=== PATIENT | female | born 1990 | race Caucasian/White ===

== ENCOUNTER 2025-10-19 23:02 | Inpatient (IN) | payer BC, SELFPAY ==
[2025-10-19] VITALS (7 sets, daily range): BP systolic 121–170; BP diastolic 95–113; BMI 38.3
[2025-10-19 20:05] LABS: Hematocrit 41.2 % (37.0-47.0); Hemoglobin 14.0 g/dL (12.0-16.0); Mean Corp Hgb Conc. 34.0 g/dL (33.0-37.0); Mean Corpuscular Volume 90.4 fL (81.0-99.0); Nucleated Red Blood Cells % 0 %; Platelet Count 214 10^3/uL (130-400); Red Cell Dist. Width 12.5 % (11.5-14.5)
[2025-10-19 20:12] LABS: INR 1.11; PT 14.4 Sec (11.4-14.6)
[2025-10-19 20:21] LABS: COVID-19 Antigen Negative (Negative)
[2025-10-19 20:25] LABS: ALT (SGPT) 61 U/L (0-35); AST (SGOT) 69 U/L (14-36); Albumin 4.5 g/dl (3.5-5.0); Alkaline Phosphatase 89 U/L (38-126); Blood Urea Nitrogen 11 mg/dl (7-17); Calcium 9.4 mg/dl (8.4-10.2); Carbon Dioxide 21 mmol/L (22-30); Chloride 104 mmol/L (98-107); Estimated Creatinine Clearance > 125 ml/min; Glucose 122 mg/dl (70-99); Potassium 4.0 mmol/L (3.5-5.1); Sodium 134 mmol/L (135-145); Total Protein 8.3 g/dl (6.3-8.2); eGFR > 60.00
[2025-10-19 20:39] LABS: Troponin I 0.115 ng/ml
--- NOTE | 2025-10-19 21:09 | ED.GENMED ---
History of Present Illness
General
Chief Complaint: Dizziness
Time Seen by Provider: 10/19/25 20:17
History of Present Illness
History of Present Illness:
35-year-old female without significant past medical history presenting to the emergency department for elevated heart rate and shortness of breath. Patient reports symptoms started 4 days ago. She initially went to urgent care, was told that it
was likely anxiety and given Xanax. She went on a work trip yesterday to [place]. Her parents called primary care doctor to schedule an appointment for tomorrow, upon her return from [place]. When she was getting on the plane today, her primary
care doctor had called her and said that she was concern for pulmonary embolism and advised her to come to the ER. The flight had already taken off, and upon landing, patient was seen by the medics at the airport and patient was escorted by her
parents to the ER. She denies any lower extremity swelling or pain. Denies any prior history of PE. She is on an estrogen containing control, intravaginal. Denies known cardiac history. Family denies any known clotting disorders. Patient
reports dyspnea at rest and exertion, with additional chest pressure. She denies additional acute medical complaint
Phy Exam
Physical Exam
Physical Exam:
General: Well-appearing, no clinical signs of dehydration, nontoxic and in no acute distress
HEENT: protecting airway
Neck: appears supple
CV: Tachycardic, regular rhythm, no evidence of cyanosis
Resp: Mild tachypnea with lungs clear to auscultation
Abd: No distention
Extremities: No deformities, no swelling
Neuro: alert, no focal neurologic deficit
: deferred
Rectal: deferred
Psych: Normal affect
Skin: Intact
Course
Orders/Labs/Results
Orders:
Orders
10/19/25 19:40
EKG [Electrocardiogram (*1)] Urgent
Reason for Study: Chest Pain
10/19/25 19:41
Electrocardiogram (*1) Urgent
Reason for Study: Chest Pain
EKG- Treatment ONCE
10/19/25 19:56
COVID-19 Antigen Urgent
Source: Nasal Swab
Complete Blood Count/With Diff Urgent
Comprehensive Metabolic Panel Urgent
Prothrombin Time Urgent
Troponin I Urgent
Influenza A+B Rapid Molecular Urgent
CRISTOBAL Source: Nasal Swab
Specimen Description:
10/19/25 20:53
CT Chest PE Study Urgent
Comment:
Reason For Exam: tachy, chest pressure. Concern for PE
10/19/25 21:59
PTT Urgent
Comment: Obtain baseline before beginning heparin infusion if not already collected
Heparin 8,600 units IV NOW STA
Pharmacy Request to Place See Dose Instructions PO NOW STA
Discontinue all Active Warfarin orders?: Yes
Nursing to Place Non Medication Order As Directed
Physician Order: PTT 6 hours after initial start of Heparin infusion
10/19/25 22:00
Heparin [id number] Units/250 ml 25,000 units in 250 ml IV PER PROTOCOL
Weight to be used for heparin protocol in kilograms (kg):: 107.6
Protocol:: DVT/PE
PTT Goal Range to be used:: PTT 73 to 111 seconds
Order type:: Initial
INITIAL Infusion Dose (UNITS/KG/hr) & then follow protocol:: 18 units/kg/hr
Infusion Dose in UNITS/hr & then follow protocol (UNITS/hr):: 1,900
INFUSION RATE in mL/hr & then follow protocol (mL/hr):: 19
For DVT/PE algorithm, re-bolus for low PTT?: Yes
PTT less than or equal to 64 seconds:: Re-bolus 80 units/kg (max 10,000units). Increase by 400 units/hr
(+ 4mL/hr)
PTT 64.1 to 72.9 seconds:: Re-bolus 40 units/kg (max 5,000 units). Increase by 200 units/hr
(+ 2mL/hr)
PTT 73 to 111 seconds:: Target Range. No change in rate.
PTT 111.1 to 130.9 seconds:: Decrease rate by 200 units/hr (- 2 mL/hr)
PTT 131 to 199.9 seconds:: HOLD for 1 hr. Then decrease by 300 units/hr (- 3mL/hr)
PTT greater than or equal to 200 seconds:: HOLD for 2 hrs & Notify Provider. Then decrease by 400 units/hr
(- 4mL/hr)
Lab follow-up:: Each change, PTT q6h until 2 consecutive are therapeutic. Then
PTT daily.
Pharmacy Request to Place See Dose Instructions IV DIRECTED
Abnormal Lab Results
10/19/25
19:56
WBC 13.4 H 10^3/uL
(4.8-10.8)
Abs Immat Gran (auto) 0.1 H 10^3/uL
(0-0.05)
Absolute Neuts (auto) 9.1 H 10^3/uL
(1.4-6.5)
Absolute Monos (auto) 1.0 H 10^3/uL
(0.1-0.6)
Sodium 134 L mmol/L
(135-145)
Carbon Dioxide 21 L mmol/L
(22-30)
Glucose 122 H mg/dl
(70-99)
AST 69 H U/L
(14-36)
ALT 61 H U/L
(0-35)
Troponin I 0.115 H* ng/ml
Total Protein 8.3 H g/dl
(6.3-8.2)
10/19/25 19:56
10/19/25 19:56
Vital Signs
Initial and Last Documented VS:
Initial Vital Signs
Temp Pulse Resp Pulse Ox
100 F 150 24 100
10/19/25 19:35 10/19/25 19:35 10/19/25 19:35 10/19/25 19:35
Last Documented Vital Signs
Temp Pulse Resp BP Pulse Ox
100 F 126 25 142/113 93
10/19/25 19:35 10/19/25 21:30 10/19/25 21:30 10/19/25 21:23 10/19/25 21:30
MDM/Problems Addressed
MDM/Problems Addressed:
35-year-old female presenting for tachycardia, chest pressure, shortness of breath. Vital signs on arrival significant for tachycardia.
On exam, patient is dyspneic at rest, markedly tachycardic to the 130s. Findings of S1Q3T3 on EKG. No significant acute ischemic findings or STEMI criteria. Patient without significant coronary risk factors. Without present concern for ACS.
However, high level of suspicion for PE given patient's estrogen containing control with presenting symptoms and vital signs. For this reason, will urgently send patient to CT scan
21:30 -informed by radiology for concern of extensive bilateral PE involving the main pulmonary arteries with suggestion of right heart strain. PERT alert called
21:35 -case discussed with pulmonology. Will also reach out to interventional radiology
*Pulse Oximetry
SaO2: 96
Oxygen Mode of Delivery: Room air
Patient hypoxic: no
*EKG
Interpreted by ED Provider?: Yes
EKG Intrepretation Date: 10/19/25
EKG Intrepretation Time: 21:13
Interpretation: abnormal
Comparison EKG: no comparison EKG present
Heart Rate: 138
Rate: tachycardiac
Rhythm: sinus
[place]: normal axis
Interval: normal interval
QRS Pattern: normal QRS
Ischemia: non-specific ST changes
*Critical Care Note
Total Time (30-74mins, 75-104mins- exclusive of procedures): 62
comment:
The high probability of a clinically significant, sudden or life threatening deterioration of the cardiopulmonary system(s) required my full and direct attention, intervention and personal management. The aggregate critical care time was 62 minutes.
This time is in addition to time spent performing reported procedures but includes the following:
[x] Data Review and interpretation
[x] Patient assessment and monitoring of vital signs
[x] Documentation
[x] Medication orders and management
ED Attending Note
-
Portions of this chart may have been created with voice recognition software.� Occasional wrong word or��sound alike� substitutions may have occurred due to the inherent limitations of voice recognition software.
Discharge Plan
Departure
Patient Disposition: Admit
Date of Disposition: 10/19/25
Time of Disposition: 22:05
Presentation/result/management discussed w/ accepting MD/DO: Hospitalist
Patient with high blood pressure during this ER visit?: No
Condition: Critical
Discharge Problem:
Pulmonary embolism, bilateral
Prescriptions:
No Action
sumatriptan succinate [Imitrex] 25 mg Tablet
0 mg PO .COMPLEX
Rx Instructions:
take 1 tab at onset of headache; if no relief may repeat 1 tab after at least 2 hrs; max = 4 tabs/24 hr
alprazolam [Xanax] 0.5 mg Tablet
0.5 mg PO DAILYPRN PRN (Reason: anxiety)
Referrals:
Nya White PA-C [Family Provider, Family Practice]
Interventions
Interventions:
*Risk Screen - Suicide Last Done: 10/19/25 19:35
*General Assessment Last Done: 10/19/25 19:35
*Neglect/Abuse Screening Last Done: 10/19/25 19:35
*ED COVID-19 Vaccine History Last Done: 10/19/25 20:06
*ED Influenza Vaccine History Last Done: 10/19/25 20:06
[facility] Fall Risk Assessment Tool Last Done: 10/19/25 20:15
ED- Neurological Assessment Last Done: 10/19/25 20:15
Discharge Date and Time
Print Language: FINNISH
[2025-10-19] MEDS: HEPARIN 25000 UNITS/250 ML IV (22:25)
--- NOTE | 2025-10-19 22:27 | HPS.HSE ---
Family Physician
-
Family Physician: Nya White PA-C
Chief Complaint
-
Dizziness
History of Present Illness
This is a 35-year-old with past medical history significant for history of migraine headaches and allergies who presents to the emergency department with dizziness and chest pressure.
Patient reports onset of symptoms about 2 to 3 days ago. She reports palpitations and lightheadedness. She reports exertional dyspnea. She also reports exertional lightheadedness. The lightheadedness got worse and now she reports lightheadedness
with just standing. She denies any pleuritic chest pain. She reported that she was was seen by urgent care 2 days ago and was told that she had an anxiety episode. She took a flight on which was 2 hours and developed worsening symptoms
after the flight. She has not seen any leg swelling. She reported that she was exposed to family members who had COVID but exposure was after resolution of their symptoms. She herself denies any URI symptoms except for visual allergy symptoms.
She reports some shortness of breath.
Patient denies any smoking. She does have a vaginal ring for control. She also reports recent travels to [facility] and back about 2 weeks ago. The flight lenght is 4.5 hours total divided into 2 2-hour legs to/fro. She reports past medical
history of dengue fever 2 years ago. She denies any prior history of venous thrombosis. She denies any recent surgeries, hospitalizations or prolonged immobility. She denies any family history of venous thromboembolism.
In the emergency department she was afebrile, blood pressure was 140/100, she was tachycardic to 126 and oxygen saturation was 94% on room air. Tmax was 100 �F. ECG shows sinus tachycardia to 138. Troponin was elevated at 0.15. CT angio of the
chest shows extensive bilateral pulmonary embolism involving the main pulmonary arteries, diuresis suggestion of right heart strain, patchy consolidation within the posterior left upper lobe and subpleural left lower lobe which may reflect pneumonia
and/or pulmonary infarct. COVID test was negative.
Medical History
Past Medical History
Past Medical History: Reports Other (Migraine headaches, allergies)
Past Surgical History: Reports Cholecystectomy and Other ([place] tooth removal)
Social History
Tobacco: Non-smoker
Alcohol: Occasional
Drug: None
Living: Alone
Family History
Family History: Not pertinent
Allergies / Home Medications
Allergies reflects when Allergies were last updated in [facility].
Home Medications with original date entered in [facility]
Allergy/Medication List:
Allergies
Allergy/AdvReac Type Severity Reaction Status Date / Time
Sulfa (Sulfonamide Allergy Unknown Verified 10/19/25 19:35
Antibiotics)
Home Medications
alprazolam 0.5 mg tablet (Xanax) 0.5 mg PO DAILYPRN PRN anxiety 10/19/25
sumatriptan succinate 25 mg tablet (Imitrex) 0 mg PO .COMPLEX 10/19/25
Review of Systems
-
Constitutional: Reports No Symptoms
EENT: Reports No Symptoms
Respiratory: Reports Trouble Breathing
Cardiac: Reports Chest Pain
Abdomen/GI: Reports No Symptoms
: Reports No Symptoms
Musculoskeletal: Reports No Symptoms
Skin: Reports No Symptoms
Neurological: Reports Dizzy
Endocrine: Reports No Symptoms
Hematologic/Lymphatic: Reports No Symptoms
Psych: Reports No Symptoms
Physical Exam
Vital Signs
Vital Signs
Temp Pulse Resp BP Pulse Ox
100 F 126 25 142/113 93
10/19/25 19:35 10/19/25 21:30 10/19/25 21:30 10/19/25 21:23 10/19/25 21:30
Physical Exam
General: Well Developed, Well Nourished and No Apparent Distress
HEENT: NormoCephalic, Moist mucous membranes and Atraumatic
Respiratory: Clear
Cardiac: S1/S2, Regular Rhythm and Tachycardia; No Murmur, Rub or Peripheral Edema
GI: Soft, Non Tender, Non Distended and Normal Bowel Sounds; No Organomegaly
Rectal: Deferred by Provider
Genito-urinary: Deferred by me
Musculoskeletal: No Clubbing, No Cyanosis and No Edema
Skin: No Rash
Neuro: AO x 3 and Nonfocal/grossly intact
Hematologic/Lymphatic: No Lymphadenopathy
Psych: Calm
Laboratory Results
-
10/19/25 19:56
10/19/25 19:56
Laboratory Results
PT 14.4 Sec (11.4-14.6) 10/19/25 19:56
INR 1.11 10/19/25 19:56
Total Bilirubin 0.6 mg/dl (0.2-1.3) 10/19/25 19:56
AST 69 U/L (14-36) H 10/19/25 19:56
ALT 61 U/L (0-35) H 10/19/25 19:56
Alkaline Phosphatase 89 U/L (38-126) 10/19/25 19:56
Troponin I 0.115 ng/ml H* 10/19/25 19:56
Data Reviewed
-
CT Scan: Report Reviewed by me
Medical Tests (Nuc Med, Echo, EKG etc): Image Personally Visualized and interpreted
Lab Data: Labs Reviewed by me
Old Records: Reviewed
Impression/Plan
-
IMPRESSION:
35-year-old with a no significant past medical history except for migraine headaches and also on control presents to the emergency department with chest pressure and lightheadedness and was found to have acute bilateral pulmonary embolism. No
clear provoking factors but has estrogen control and a recent flight to and from [facility].
PLAN:
Pulmonary embolism -bilateral PE, right heart strain, elevated troponin 0.10, persistent tachycardic consistent with submassive PE. Patient remains hemodynamically stable at this time. Oxygen saturation is 94% on room air.
� Admit to ICU pending thrombolysis/thrombectomy
� Patient discussed with pulmonary and interventional radiology, patient will be going for thrombolysis/thrombectomy
� Started on heparin drip
-N.p.o. for now
-Supportive fluids, pain control and antiemetics
-Supplemental oxygen as needed
-Patchy opacities more likely infarct rather than pneumonia, will check procalcitonin with a.m. labs will start antibiotics if febrile
- trend troponin in am, echo in am
-No clear provoking factors except for estrogen control and a fairly short recent flight to [facility].
- recommend age appropriate cancer screening (mammogram, cervical exams), outpatient hypercoagulability workup recommended
-IR consulted, pulmonary consulted
DVT prophylaxis�on heparin drip
CODE STATUS�full code
[2025-10-19] MEDS: HEPARIN 8600 UNITS IV (22:28)
[2025-10-19 22:52] LABS: APTT 27.5 Sec (23.4-35.0)
[2025-10-19 23:17] LABS: HCG, Serum Qualitative Screen Negative
[2025-10-20] VITALS (46 sets, daily range): BP systolic 118–152; BP diastolic 61–107; BMI 36.3
--- NOTE | 2025-10-20 01:36 | W.PN.UPDATE ---
Update Note
Progress Note Update
Pulmonary arteriogram showed extensive bilateral central PE. Initial PA pressure 65/29 (mean 45).
Bilateral embolectomy performed, yielding large amount of embolus from each side. Repeat arteriogram much improved.
Repeat PA pressure 47/21 (mean 33).
Bedrest for 2 hours. Please hold heparin for 2 hours, then OK to resume therapeutic heparin around 3:30 am.
[2025-10-20 01:53] LABS: Glucose - Point of Care 101 mg/dl (70-99)
[2025-10-20] MEDS: NSS 1000 IV (02:19)
[2025-10-20] MEDS: HEPARIN 25000 UNITS/250 ML IV ×2 (03:40→13:46)
[2025-10-20 04:07] LABS: Hematocrit 34.0 % (37.0-47.0); Hemoglobin 11.7 g/dL (12.0-16.0); Mean Corp Hgb Conc. 34.4 g/dL (33.0-37.0); Mean Corpuscular Volume 87.6 fL (81.0-99.0); Platelet Count 156 10^3/uL (130-400); Red Cell Dist. Width 12.8 % (11.5-14.5)
[2025-10-20 04:09] LABS: APTT 47.5 Sec (23.4-35.0)
[2025-10-20 04:31] LABS: Procalcitonin < 0.05 ng/ml (0.0-0.25)
[2025-10-20 04:35] LABS: Troponin I 0.272 ng/ml
--- NOTE | 2025-10-20 05:36 | PTCARENOTE ---
Received patient from [facility], pt is AOX3, VSS, NSR/ST on monitor, 2L NC. Right groin site is CDI, palpable pulse to right lower leg. Heparin on hold until 0. Pt to lay flat for 2 hours. IVF infusing at 60ml/hr.
After 2hours of laying flat, trialed sitting at 15 degrees, pt coughed, groin site started to bleed. held pressure, no hematoma.
Heparin restarted 339.
--- NOTE | 2025-10-20 07:15 | PTCARENOTE ---
Received patient A&Ox4, NSR in 80s, BP WNL, on 2L NC, no SOB complained or observed, Regular diet, Urine continent, Right Groin puncture site covered with gauze and Tegaderm, soft to touch.
--- NOTE | 2025-10-20 07:39 | CON.INTV ---
Consultation
Consultation Request
Date/Time Consultation Requested: 10/19/25
Date/Time Consultation Performed: 10/20/25
Performing Provider: Norma
Reason for Consultation: PE
Medical History
-
History of Present Illness:
35-year-old female with previous history of migraines, allergies, obesity presenting to ER with dizziness and chest pressure. She notes that the symptoms started 2 to 3 days prior to admission, with associated palpitations, lightheadedness,
dyspnea on exertion. Of note, she did have a frequent flight on which was 2 hours and developed worsening symptoms after the flight. She is also on control. She had not noticed any leg swelling or pain. On arrival to ER, blood
pressure was 140/100, tachycardic at 126 with oxygen saturation at 94% on room air. She had Tmax of 100.0 F. Troponin elevated at 0.15. CT angio demonstrating extensive bilateral pulmonary embolism involving the main pulmonary artery with
evidence of right heart strain. She had urgent evaluation via PERT, underwent bilateral embolectomy by IR with initial PA pressure 65/29 with a mean of 45. She is admitted to ICU and remains on IV heparin.
Denies prior known history of VTE, no family history.
Past Medical History
Past Medical History: Other (see list below)
Social History
Tobacco: Non-smoker
Alcohol: None
Drug: None
Family History
Family History: Reviewed & Not Pertinent
Allergies / Home Medications
Allergies
Allergy/AdvReac Type Severity Reaction Status Date / Time
Sulfa (Sulfonamide Allergy Unknown Verified 10/19/25 19:35
Antibiotics)
Home Medications
�Medication �Instructions �Recorded �Confirmed �Last Taken �Type
alprazolam 0.5 mg tablet (Xanax) 0.5 mg PO DAILYPRN PRN anxiety 10/19/25 10/19/25 10/18/25 History
sumatriptan succinate 25 mg tablet 0 mg PO .COMPLEX 10/19/25 10/19/25 Unknown History
(Imitrex)
Review of Systems
-
History Source: Patient
All other systems: Negative unless noted
Vitals / Labs / Diagnostic Testing
Vital Signs
Temp Pulse Resp BP Pulse Ox
98.4 F 90 21 128/95 97
10/20/25 07:08 10/20/25 05:00 10/20/25 05:00 10/20/25 05:00 10/20/25 05:00
Lab Data
10/20/25 03:36
10/19/25 19:56
Laboratory Results
10/19/25 10/19/25 10/20/25
19:56 22:20 03:36
PT 14.4
INR 1.11
APTT 27.5 47.5 H
Microbiology
10/19/25 19:56 Nasal Swab Influenza Types A & B (DONYA) - Final
Negative for Influenza A & B, NAAT
Negative results must be combined with clinical observations
and patient history.
Nucleic Acid Amplification test (NAAT)performed on the
[employer] platform.
Diagnostic Testing:
Physical Exam
-
HEENT: Normocephalic, Anicteric and Moist Mucous Membranes
Cardiovascular: S1/S2 and Regular Rhythm
Respiratory: Clear and Non-Labored Respirations
GI: Soft, Non Distended and Non Tender
Neurology: Awake, Alert, Oriented and No Motor Deficits
Skin: Warm, Dry and Good Color
General: Comfortable and Other (NAD)
Assessment
-
35-year-old female with previous history of migraines, allergies, obesity presenting to ER with dizziness and chest pressure. She notes that the symptoms started 2 to 3 days prior to admission, with associated palpitations, lightheadedness,
dyspnea on exertion. Of note, she did have a frequent flight on which was 2 hours and developed worsening symptoms after the flight. She had not noticed any leg swelling or pain. On arrival to ER, blood pressure was 140/100, tachycardic
at 126 with oxygen saturation at 94% on room air. She had Tmax of 100.0 F. Troponin elevated at 0.15. CT angio demonstrating extensive bilateral pulmonary embolism involving the main pulmonary artery with evidence of right heart strain. She had
urgent evaluation via PERT, underwent bilateral embolectomy by IR with initial PA pressure 65/29 with a mean of 45. She is admitted to ICU and remains on IV heparin.
Extensive bilateral PE with right heart strain, massive status post bilateral embolectomy by IR 10/19/2025
Pulmonary hypertension
Sinus tachycardia
Elevated troponins, likely from right heart strain
Shortness of breath/lightheadedness/palpitations
Leukocytosis
Hyponatremia, mild
Conditions present prior to admission
Migraines
Seasonal allergies
Obesity, BMI 36
[place] teeth extraction 2004
Cholecystectomy 2013
History of dengue fever
Plan
No current signs of metabolic encephalopathy or MS changes/following commands
Denies pain at this time.
Pain/sedation: PRN
RASS goals: 0
Hemodynamically stable, not requiring pressors.
Cardiac history reviewed--none
Trop elevated, ECHO pending
Tachy resolved, monitor on telemetry
Oxygen needs: stable on supplemental O2, can wean to RA
Prior history of lung disease: none, no prior VTE history
CXR/CT reviewed indicating large PE burden BL s/p thrombectomy by IR
We discussed treatment with OAC x 3 mos, likely to need OP FARRELL
Transition to OAC in next 24 hours
Duplex pending
Supplemental O2 as indicated to maintain sats > 89%
Diet advancement
Aspiration precautions, HOB > 30 degrees
Speech therapy eval can be considered if at elevated risk
GI prophylaxis if indicated
Creat at baseline, no history of renal disease
Void trials
Follow urine output, critical I/Os
Replete electrolytes as needed
No signs/symptoms suspicious for infectious etiology at this time
Observe off antibiotics for now
Follow fever trend, WBC count
CBC stable, no signs of bleeding or coagulopathy.
Monitor while on heparin, no tPA given
DVT prophylaxis as assessed based on risk, including mechanical SCDs
Can transfuse if indicated for Hb <7, plt < 10
No prior h/o diabetes or thyroid disease
Monitor accuchecks PRN/SS coverage if needed
If stable in next 24 hours, can transfer out. Will follow
Diagnostic Data
Chest X-Ray:
CT Scan: CHEST 10/19/25- 1. Extensive bilateral pulmonary embolism involving the main pulmonary arteries.
2. CT findings highly suggestive of right heart strain.
3. Patchy consolidation within the posterior left upper lobe and subpleural left lower lobe may reflect pneumonia and/or pulmonary infarcts.
Echo:
PFT's:
Reports and relevant images were personally reviewed.
Critical Care time 65 mins -- The patient is admitted for acute critical illness for the treatment of vital organ failure and/or prevention of further life-threatening conditions. Total care includes time spent in review of history, physical exam,
medications, hemodynamic/ventilator parameters, laboratory data, imaging and discussion with house staff, pharmacy, respiratory therapy, ebd teacher, and nursing.
[2025-10-20] MEDS: MIRALAX 17 GRAMS PO (08:12)
[2025-10-20 10:04] LABS: Glycohemoglobin (HgbA1c) 4.9 % (4.0-5.9)
[2025-10-20 10:13] LABS: APTT 118.5 Sec (23.4-35.0)
[2025-10-20] MEDS: TYLENOL 650 MG PO (11:50)
--- NOTE | 2025-10-20 12:00 | PTCARENOTE ---
Reassessed the patient, OOB to the bathroom and Chair w/ 1-2 people assistance, Gait steady, No SOB complained or observed. Titrated 2L NC to RA. Tylenol and Ice pack given for Right Groin Puncture site sore/pain.
[2025-10-20 12:58] LABS: Troponin I 0.102 ng/ml
--- NOTE | 2025-10-20 13:24 | CM ---
Patient seen at bedside with patient parents in one story home. Patient PCP is Dr. Joyce Ding and she uses the [facility] medicine office. Patient Pharmacy is [facility] and per [facility] patient cost for eliquis is 320$ for 30 days/60 pills. Coupons
provided to patient for 30 day free and 10$ copay. CM also provided information regarding medication. Patient physician updated. CM will continue to follow for discharge planning needs.
Plan; home with no needs; medication coupons provided.
[2025-10-20 15:59] LABS: APTT 126.0 Sec (23.4-35.0)
--- NOTE | 2025-10-20 16:12 | PTCARENOTE ---
Reassessed the patient, back to bed w/ 1 person assistance, continue on RA, no dyspnea observed at rest or walking to the bathroom. Pending Echo and US B/L LE.
--- NOTE | 2025-10-20 17:23 | W.PN.HOSP.TC ---
Addendum entered and electronically signed by Marie Ingram MD 10/20/25 19:13:
I saw and evaluated the patient independently. I reviewed and discussed the resident�s note and agree with findings and plan as documented by Dr. Saavedra.
GENERAL: well developed, well nourished, obese female in no apparent distress
HEENT: NC/AT-- O2 requirements
HEART: regular rate and rhythm, +S1, +S2, tachy
LUNGS : clear to auscultation bilaterally
ABDOM: soft, nontender, nondistended, + bowel sounds
EXT: no cyanosis, clubbing, or edema
NEUROLOGIC: grossly intact
Extensive bilateral pulmonary embolism with Acute hypoxic respiratory insufficiency--likely provoked from sedentary lifestyle, flying, vaginal ring control--apprec IR/pulm--s/p mechanical thrombectomy--wean O2--heparin drip for 24 hours,
transition to Eliquis afterwards, needs minimum of 3 months, more like 6 months of anticoagulation--check BL LE US--outpt heme workup
Nonischemic troponin elevation--due to right heart strain from PE--ECHO pending
Transaminitis--Unclear significance, possibly related to transiently decreased CO as a consequence of extensive PE- Trend CMP
Migraine- No acute symptoms at this time
DVT proph-- Heparin drip
Code Status-- Full code
Original Note:
Today's Communication/Plan
-
Continue with heparin drip
Wean O2 as tolerated
CM to segal Eliquis
Possible downgrade from ICU tomorrow
Pending echo, lower extremity Doppler ultrasound
Assessment / Plan
Assessment / Plan
Jose is a 35-year-old female with a past medical history of migraines, allergies, obesity who presented to the ER with complaints of dizziness and chest pressure that had persisted for 1 to 2 weeks with prior negative workup at outpatient urgent
care. She travels frequently for work, flies often. On arrival to the ED she was tachycardic, tachypneic, O2 saturations at 94% on room air and had an episode of hypotension. CT angiogram demonstrated extensive bilateral pulmonary embolism with
right heart strain. She underwent bilateral embolectomy with IR, was admitted to ICU, and started on heparin drip.
# Extensive bilateral pulmonary embolism, provoked
# Status post bilateral embolectomy
# Acute hypoxic respiratory insufficiency secondary to extensive bilateral PE
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 No family history or personal history of clotting disorders/PE
- Tolerated bilateral embolectomy well
- Remains on heparin drip for now
- Bilateral lower extremity venous Doppler pending
- Wean O2 as tolerated to maintain oxygen saturation greater than 92%
- Case management to segal Eliquis, likely transition to oral DOAC in the a.m.
- treatment course TBD, most likely 3 to 6 months
- May benefit from outpatient Hematology workup
# Nonischemic troponin elevation
Likely secondary to transient right heart strain due to extensive PE
- ECG showing no evidence of ischemia
- Troponin peak at 0.272
- Echo pending
# Transaminitis
Unclear significance, possibly related to transiently decreased CO as a consequence of extensive PE
- No other abdominal
- Trend CMP
# Migraine
- No acute symptoms at this time
- c/t monitor
DVT prophylaxis: Heparin ggt
Status: Full code
Anticipated Discharge: 24 - 48 hours
Subjective/Interval History
-
Date of Service: October 20, 2025
Patient is status post thrombectomy of extensive bilateral pulmonary embolisms, doing well. Complains of heaviness in the chest but no chest pain pain when taking deep breaths. She is not short of breath. No acute overnight events. She is on 2 L
oxygen nasal cannula and saturating well.
Objective Data
-
Labs:
Laboratory Results
10/20/25 10/20/25 10/20/25
09:39 15:40 22:00
APTT 118.5 H 126.0 H Pending
Vital Signs:
Vital Signs
Temp Pulse Resp BP Pulse Ox
98 F 93 22 137/94 99
10/20/25 15:12 10/20/25 16:04 10/20/25 16:04 10/20/25 16:04 10/20/25 16:04
I&O
10/19/25 10/20/25 10/21/25
06:59 06:59 06:59
Intake Total 240 / 379 1509 / 1509
Output Total 1400 / 1400
Balance 240 / -221 109 / 109
Review of Systems
-
History Source: Patient
All other systems: Reviewed and negative
Constitutional: Reports No Symptoms
EENT: Reports No Symptoms Reported
Respiratory: Reports Other ('Chest heaviness'); Denies Cough, Hemoptysis, Trouble Breathing, Wheezing or Pleurisy
Cardiac: Reports No Symptoms
Abdomen/GI: Reports No Symptoms
Genitourinary: Reports No Symptoms
Musculoskeletal: Reports No Symptoms
Skin: Reports No Symptoms
Neuro: Reports No Symptoms
Physical Exam
-
General: Well Developed, Well Nourished, No Apparent Distress and Comfortable
HEENT: Normocephalic, Atraumatic, Moist Mucous Membranes, Anicteric, [place] Conjunctivae, PERRLA, Nose Appears Normal and Ears Appear Normal
Respiratory: Clear to Auscultation; Negative Wheezes, Rales or Rhonchi
Cardiac: Regular Rhythm, S1/S2 and Tachycardic; Negative Murmur
GI: Soft, Nontender, Nondistended and Normal Bowel Sounds
Rectal: Deferred by Provider
Genito-urinary: Deferred by me
Musculoskeletal: No Clubbing, No Cyanosis and No Edema
Skin: Warm, Dry and IV Access / Catheter Site
Neuro: AO x 3 and Nonfocal/Grossly Intact
Psych: Calm and Intact Judgement/Insight
--- NOTE | 2025-10-20 20:37 | PTCARENOTE ---
Pt Aox3, VSS, NSR at rest ST with activity. denies pain. 98% on room air. Heparin gtt infusing per protocol. Ambulated to bathroom with supervision.
[2025-10-20] MEDS: PROTONIX IV 40 MG IV (22:50)
[2025-10-20 23:05] LABS: APTT 91.3 Sec (23.4-35.0)
[2025-10-21] VITALS (17 sets, daily range): BP systolic 113–152; BP diastolic 67–113; BMI 36.7
[2025-10-21] MEDS: HEPARIN 25000 UNITS/250 ML IV (05:29)
[2025-10-21 05:45] LABS: Hematocrit 30.3 % (37.0-47.0); Hemoglobin 10.6 g/dL (12.0-16.0); Mean Corp Hgb Conc. 35.0 g/dL (33.0-37.0); Mean Corpuscular Volume 89.6 fL (81.0-99.0); Platelet Count 162 10^3/uL (130-400); Red Cell Dist. Width 12.4 % (11.5-14.5)
[2025-10-21 05:54] LABS: APTT 77.8 Sec (23.4-35.0)
[2025-10-21 06:12] LABS: ALT (SGPT) 128 U/L (0-35); AST (SGOT) 79 U/L (14-36); Albumin 3.1 g/dl (3.5-5.0); Alkaline Phosphatase 59 U/L (38-126); Blood Urea Nitrogen 6 mg/dl (7-17); Calcium 8.2 mg/dl (8.4-10.2); Carbon Dioxide 21 mmol/L (22-30); Chloride 109 mmol/L (98-107); Estimated Creatinine Clearance > 125 ml/min; Glucose 85 mg/dl (70-99); Potassium 3.9 mmol/L (3.5-5.1); Sodium 134 mmol/L (135-145); Total Protein 6.0 g/dl (6.3-8.2); eGFR > 60.00
--- NOTE | 2025-10-21 07:21 | W.PN.HOSP.TC ---
Addendum entered and electronically signed by Marie Ingram MD 10/21/25 11:44:
I saw and evaluated the patient independently. I reviewed and discussed the resident�s note and agree with findings and plan as documented by Dr. Saavedra.
GENERAL: well developed, well nourished, obese female in no apparent distress
HEENT: NC/AT-- off O2 requirements
HEART: regular rate and rhythm, +S1, +S2, tachy
LUNGS : clear to auscultation bilaterally
ABDOM: soft, nontender, nondistended, + bowel sounds
EXT: no cyanosis, clubbing, or edema
NEUROLOGIC: grossly intact
Extensive bilateral pulmonary embolism with Acute hypoxic respiratory insufficiency and right heart strain--likely provoked from sedentary lifestyle, flying, vaginal ring control--apprec IR/pulm--s/p mechanical thrombectomy 10/19--off
O2--heparin drip transitioning to Eliquis, needs minimum of 3 months, more like 6 months of anticoagulation given clot burden-- BL LE US pending--outpt heme workup
Nonischemic troponin elevation--due to right heart strain from PE--ECHO pending
Transaminitis--Unclear significance, possibly related to transiently decreased CO as a consequence of extensive PE- Trend CMP
Migraine- No acute symptoms at this time
DVT proph-- Heparin drip
Code Status-- Full code
transfer to tele
Original Note:
Today's Communication/Plan
-
stop heparin ggt
transition to Eliquis 10mg BID
downgrade to tele
trend CMP
await echo on Wednesday
await LE Doppler
Assessment / Plan
Assessment / Plan
Jose is a 35-year-old female with a past medical history of migraines, allergies, obesity who presented to the ER with complaints of dizziness and chest pressure that had persisted for 1 to 2 weeks with prior negative workup at outpatient urgent
care. She travels frequently for work, flies often. On arrival to the ED she was tachycardic, tachypneic, O2 saturations at 94% on room air and had an episode of hypotension. CT angiogram demonstrated extensive bilateral pulmonary embolism with
right heart strain. She underwent bilateral embolectomy with IR, was admitted to ICU, and started on heparin drip.
# Extensive bilateral pulmonary embolism, provoked
# Status post bilateral embolectomy
# Acute hypoxic respiratory insufficiency secondary to extensive bilateral PE
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 No family history or personal history of clotting disorders/PE
- Tolerated bilateral embolectomy well
- started on heparin ggt -- now stopped and transition to DOAC
- Bilateral lower extremity venous Doppler pending
- Wean O2 as tolerated to maintain oxygen saturation greater than 92%
- Case management to segal Eliquis
- treatment course TBD, most likely 3 to 6 months
- start Eliquis 10mg BID
- downgrade to Telemetry
- May benefit from outpatient Hematology workup
# Nonischemic troponin elevation
Likely secondary to transient right heart strain due to extensive PE
- ECG showing no evidence of ischemia
- Troponin peak at 0.272
- Echo pending
# Transaminitis
Unclear significance, possibly related to transiently decreased CO as a consequence of extensive PE
- No other abdominal
- Trend CMP
# Migraine
- No acute symptoms at this time
- c/t monitor
DVT prophylaxis: Heparin ggt
Status: Full code
Anticipated Discharge: 24 - 48 hours
Subjective/Interval History
-
Date of Service: October 21, 2025
Had episode of chest pressure overnight similar to sx of PE. ECG was done which showed no ischemia. O2 sats were good. she is able to walk around without dizziness or lightheadedness. Overall stable.
Objective Data
-
Labs:
Laboratory Results
10/20/25 10/21/25
22:45 05:19
WBC 8.3
Hgb 10.6 L
Hct 30.3 L
Plt Count 162
APTT 91.3 H 77.8 H
Sodium 134 L
Potassium 3.9
Chloride 109 H
Carbon Dioxide 21 L
BUN 6 L
Creatinine 0.6
Glucose 85
Calcium 8.2 L
Total Bilirubin 0.5
AST 79 H
ALT 128 H
Alkaline Phosphatase 59
Vital Signs:
Vital Signs
Temp Pulse Resp BP Pulse Ox
98 F 84 23 118/76 96
10/20/25 20:27 10/21/25 03:00 10/21/25 03:00 10/21/25 03:00 10/21/25 03:00
I&O
10/20/25 10/21/25 10/22/25
06:59 06:59 06:59
Intake Total 240 / 379 1719 / 1719
Output Total 2200 / 2200
Balance 240 / -221 -481 / -481
Review of Systems
-
History Source: Patient
All other systems: Reviewed and negative
Constitutional: Reports No Symptoms
EENT: Reports No Symptoms Reported
Respiratory: Reports No Symptoms
Cardiac: Reports Other (chest pressure that is worse when lying down. Not quite painful. ); Denies Chest Pain, Diaphoresis, Palpitations, Syncope, PND or Orthopnea
Abdomen/GI: Reports No Symptoms
Genitourinary: Reports No Symptoms
Musculoskeletal: Reports No Symptoms
Skin: Reports No Symptoms
Neuro: Reports No Symptoms
Physical Exam
-
General: Well Developed, Well Nourished, No Apparent Distress and Comfortable
HEENT: Normocephalic, Atraumatic, Moist Mucous Membranes, Anicteric, [place] Conjunctivae, No Ptosis, PERRLA, Nose Appears Normal and Ears Appear Normal
Respiratory: Clear to Auscultation and Non Labored Respirations; Negative Wheezes, Rales or Rhonchi
Cardiac: Regular Rhythm, S1/S2 and Tachycardic; Negative Murmur or Rub
GI: Soft, Nontender, Nondistended and Normal Bowel Sounds
Rectal: Deferred by Provider
Genito-urinary: Deferred by me
Musculoskeletal: No Clubbing, No Cyanosis and No Edema
Skin: Warm, Dry and IV Access / Catheter Site
Neuro: AO x 3 and Nonfocal/Grossly Intact
Psych: Anxious
--- NOTE | 2025-10-21 07:36 | W.PN.INTV ---
Addendum entered and electronically signed by Pat Green, DO 10/21/25 15:53:
Patient admits to sedentary lifestyle, sits for greater than 8 hours working from home
This is likely provoked
Original Note:
Today's Communication / Plan
Recommendations
Remains on IV heparin, transition to OAC per team
ECHO and duplex pending
Encouraged OOB, PT today
Transfer to tele today per team, we will follow on floors
Assessment
-
35-year-old female with previous history of migraines, allergies, obesity presenting to ER with dizziness and chest pressure. She notes that the symptoms started 2 to 3 days prior to admission, with associated palpitations, lightheadedness,
dyspnea on exertion. Of note, she did have a frequent flight on which was 2 hours and developed worsening symptoms after the flight. She had not noticed any leg swelling or pain. On arrival to ER, blood pressure was 140/100, tachycardic
at 126 with oxygen saturation at 94% on room air. She had Tmax of 100.0 F. Troponin elevated at 0.15. CT angio demonstrating extensive bilateral pulmonary embolism involving the main pulmonary artery with evidence of right heart strain. She had
urgent evaluation via PERT, underwent bilateral embolectomy by IR with initial PA pressure 65/29 with a mean of 45. She is admitted to ICU and remains on IV heparin.
Extensive bilateral PE with right heart strain, massive status post bilateral embolectomy by IR 10/19/2025
Pulmonary hypertension
Sinus tachycardia
Elevated troponins, likely from right heart strain
Shortness of breath/lightheadedness/palpitations
Leukocytosis
Hyponatremia, mild
Conditions present prior to admission
Migraines
Seasonal allergies
Obesity, BMI 36
[place] teeth extraction 2004
Cholecystectomy 2013
History of dengue fever
Plan
No current signs of metabolic encephalopathy or MS changes/following commands
Denies pain at this time.
Pain/sedation: PRN
RASS goals: 0
Hemodynamically stable, not requiring pressors.
Cardiac history reviewed--none
Trop elevated, ECHO pending
Tachy resolved, monitor on telemetry
Oxygen needs: stable on supplemental O2, can wean to RA
Prior history of lung disease: none, no prior VTE history
CXR/CT reviewed indicating large PE burden BL s/p thrombectomy by IR
We discussed treatment with OAC x 3 mos, likely to need OP FARRELL
Transition to OAC in next 24 hours
Duplex pending
Supplemental O2 as indicated to maintain sats > 89%
Diet advancement
Aspiration precautions, HOB > 30 degrees
Speech therapy eval can be considered if at elevated risk
GI prophylaxis if indicated
Creat at baseline, no history of renal disease
Void trials
Follow urine output, critical I/Os
Replete electrolytes as needed
No signs/symptoms suspicious for infectious etiology at this time
Observe off antibiotics for now
Follow fever trend, WBC count
CBC stable, no signs of bleeding or coagulopathy.
Monitor while on heparin, no tPA given
DVT prophylaxis as assessed based on risk, including mechanical SCDs
Can transfuse if indicated for Hb <7, plt < 10
No prior h/o diabetes or thyroid disease
Monitor accuchecks PRN/SS coverage if needed
Diagnostic Data
Chest X-Ray:
CT Scan: CHEST 10/19/25- 1. Extensive bilateral pulmonary embolism involving the main pulmonary arteries.
2. CT findings highly suggestive of right heart strain.
3. Patchy consolidation within the posterior left upper lobe and subpleural left lower lobe may reflect pneumonia and/or pulmonary infarcts.
Echo:
PFT's:
Reports and relevant images were personally reviewed.
Critical Care time 35 mins -- The patient is admitted for acute critical illness for the treatment of vital organ failure and/or prevention of further life-threatening conditions. Total care includes time spent in review of history, physical exam,
medications, hemodynamic/ventilator parameters, laboratory data, imaging and discussion with house staff, pharmacy, respiratory therapy, contact assembler, and nursing.
Subjective Dataa
Subjective Data
Date of Service:
Date of Service: October 21, 2025
Chief Complaint: [employer] Follow Up
Subjective:
No acute events ON, remains on heparin IV
Has chest pain overnight, no changes on cardiac monitoring
Objective Data
Data Reviewed
Vital Signs / I&O / Oxygen:
Vital Signs
Temp Pulse Resp BP Pulse Ox
98 F 84 23 118/76 96
10/20/25 20:27 10/21/25 03:00 10/21/25 03:00 10/21/25 03:00 10/21/25 03:00
Intake and Output
10/20/25 10/21/25 10/22/25
06:59 06:59 06:59
Intake Total 240 / 379 1719 / 1719
Output Total 2200 / 2200
Balance 240 / -221 -481 / -481
SaO2 96
Nasal Cannula flow liters per 2
minute
Physical Exam
General: Comfortable and Other (NAD)
HEENT: Normocephalic, Anicteric and Moist Mucous Membranes
Cardiovascular: S1-S2 and Regular Rhythm
Respiratory: Clear and Non-Labored Respirations
GI: Soft, Non Distended and Non Tender
Neurology: Awake, Alert, Oriented and No Motor Deficits
Skin: Warm, Dry and Good Color
Labs/Micro/Reports
Lab Data
10/21/25 05:19
10/21/25 05:19
Laboratory Results
10/20/25 10/20/25 10/20/25
09:39 15:40 22:45
APTT 118.5 H 126.0 H 91.3 H
10/21/25
05:19
APTT 77.8 H
Microbiology
10/19/25 19:56 Nasal Swab Influenza Types A & B (DONYA) - Final
Negative for Influenza A & B, NAAT
Negative results must be combined with clinical observations
and patient history.
Nucleic Acid Amplification test (NAAT)performed on the
[employer] platform.
--- NOTE | 2025-10-21 08:00 | PTCARENOTE ---
Received pt awake and alert.Speech is appropriate.Gait is steady.Denies pain.SR-ST noted.Heparin gtt infusing.Lungs CTA.POX 97% on RA.Appetite good.Voiding yellow urine.Right groin dressing intact without drainage.Plan of care discussed.
[2025-10-21] MEDS: MIRALAX 17 GRAMS PO (08:10)
[2025-10-21] MEDS: ELIQUIS 10 MG PO ×2 (10:30→20:09)
--- NOTE | 2025-10-21 10:52 | W.PN.UPDATE ---
Update Note
Progress Note Update
Patient feels much better, out of bed and able to speak without struggling for breath. Hemodynamically stable, heart rate much improved.
She does report some dull chest achiness, mostly when lying down, which is not unexpected following embolectomy.
Minimal bruising right groin, also not unexpected.
Hemoglobin dropped from 14 to 10. Reassured patient that is because when we remove emboli, we also remove some blood at the same time. Her body should naturally restore her hemoglobin level.
Plan - therapeutic anticoagulation.
--- NOTE | 2025-10-21 13:28 | PTCARENOTE ---
Pt assessed.No change in assessment noted.
--- NOTE | 2025-10-21 16:00 | PTCARENOTE ---
Pt assessed.No change in assessment noted.
[2025-10-22] MEDS: TYLENOL 650 MG PO (05:20)
[2025-10-22 05:39] LABS: APTT 30.3 Sec (23.4-35.0)
[2025-10-22 05:43] LABS: Hematocrit 32.2 % (37.0-47.0); Hemoglobin 10.8 g/dL (12.0-16.0); Mean Corp Hgb Conc. 33.5 g/dL (33.0-37.0); Mean Corpuscular Volume 92.3 fL (81.0-99.0); Platelet Count 193 10^3/uL (130-400); Red Cell Dist. Width 12.3 % (11.5-14.5)
[2025-10-22 06:12] LABS: ALT (SGPT) 102 U/L (0-35); AST (SGOT) 45 U/L (14-36); Albumin 3.4 g/dl (3.5-5.0); Alkaline Phosphatase 73 U/L (38-126); Blood Urea Nitrogen 5 mg/dl (7-17); Calcium 8.5 mg/dl (8.4-10.2); Carbon Dioxide 22 mmol/L (22-30); Chloride 107 mmol/L (98-107); Estimated Creatinine Clearance > 125 ml/min; Glucose 83 mg/dl (70-99); Potassium 4.1 mmol/L (3.5-5.1); Sodium 135 mmol/L (135-145); Total Protein 6.3 g/dl (6.3-8.2); eGFR > 60.00
--- NOTE | 2025-10-22 08:00 | PTCARENOTE ---
Received pt awake and alert.Speech is appropriate.Gait stary.SR noted.Lungs CTA.POX 97% RA.Voiding yellow urine.Plan of care discussed.
--- NOTE | 2025-10-22 08:00 | PTCARENOTE ---
Received pt awake and alert.Speech is appropriate.Gait is steady.SR noted.POX 97% RA.Lungs CTA.No SOB.Appetite good.Voiding yellow urine.Plan of care discussed.
[2025-10-22] MEDS: MIRALAX 17 GRAMS PO (08:41)
[2025-10-22] MEDS: ELIQUIS 10 MG PO (08:41)
[2025-10-22 08:47] VITALS: BP 137/89
--- NOTE | 2025-10-22 09:55 | W.PN.PUL3 ---
Today's Communication / Plan
-
Eliquis
Outpatient hematology evaluation recommended for hypercoagulable workup and to assist with duration of AC needed
repeat echo in 4 to 6 weeks to reevaluate RV + PA pressures
outpatient pulmonary office follow-up will be arranged for PFTs
Patient is being prepared for discharge today
Sign off; please call back with questions/concerns
Assessment
-
35-year-old female with previous history of migraines, allergies, obesity presenting to ER with dizziness and chest pressure. She notes that the symptoms started 2 to 3 days prior to admission, with associated palpitations, lightheadedness,
dyspnea on exertion. Of note, she did have a frequent flight on which was 2 hours and developed worsening symptoms after the flight. She had not noticed any leg swelling or pain. On arrival to ER, blood pressure was 140/100, tachycardic
at 126 with oxygen saturation at 94% on room air. She had Tmax of 100.0 F. Troponin elevated at 0.15. CT angio demonstrating extensive bilateral pulmonary embolism involving the main pulmonary artery with evidence of right heart strain. She had
urgent evaluation via PERT, underwent bilateral embolectomy by IR with initial PA pressure 65/29 with a mean of 45. She is admitted to ICU and remains on IV heparin.
Extensive bilateral PE with right heart strain, massive status post bilateral embolectomy by IR 10/19/2025
Pulmonary hypertension
Sinus tachycardia
Elevated troponins, likely from right heart strain
Shortness of breath/lightheadedness/palpitations
Leukocytosis
Hyponatremia, mild
Conditions present prior to admission
Migraines
Seasonal allergies
Obesity, BMI 36
[place] teeth extraction 2004
Cholecystectomy 2013
History of dengue fever
Plan
No current signs of metabolic encephalopathy or MS changes/following commands
Denies pain at this time.
Pain/sedation: PRN
Hemodynamically stable
Cardiac history reviewed--none
Trop elevated, ECHO shows mild RV enlargement with low normal RV systolic function, PASP 39; no prior echo to compare to
Tachy resolved, monitor on telemetry
Now on room air, breathing comfortably
Prior history of lung disease: none, no prior VTE history
CXR/CT reviewed indicating large PE burden BL s/p thrombectomy by IR
We discussed treatment with OAC x 3 mos, likely to need OP FARRELL
Continue Eliquis
Duplex shows RLE popliteal DVT
Recommend outpatient hematology evaluation for hypercoagulable workup and to discuss duration of AC needed
Supplemental O2 as indicated to maintain sats > 89%
Aspiration precautions, HOB > 30 degrees
Speech therapy eval can be considered if at elevated risk
GI prophylaxis if indicated
Creat at baseline, no history of renal disease
Replete electrolytes as needed, with K>4, Mg>2
No signs/symptoms suspicious for infectious etiology at this time
Observe off antibiotics for now
Follow temperature curve, trend WBC count
CBC stable, no signs of bleeding or coagulopathy.
Monitor while on NOAC; no tPA given
DVT prophylaxis: Eliquis
Can transfuse if indicated for Hb <7, plt < 10-20k
No prior h/o diabetes or thyroid disease
Monitor accuchecks PRN/SS coverage if needed
Patient is being prepared for discharge today. Pulmonary service will now sign off. Thank you for allowing us to be involved in the care of this patient. Please call back with any questions or concerns. Outpatient pulmonary office follow-up
will be arranged for PFTs and recommend repeat echo in 4-6 weeks +/- repeat duplex US.
Diagnostic Data
CT Scan: CHEST 10/19/25- 1. Extensive bilateral pulmonary embolism involving the main pulmonary arteries.
2. CT findings highly suggestive of right heart strain.
3. Patchy consolidation within the posterior left upper lobe and subpleural left lower lobe may reflect pneumonia and/or pulmonary infarcts.
Reports and relevant images were personally reviewed.
Total time spent today was 58 minute for this encounter. Time includes reviewing laboratory tests/imaging results, reviewing pertinent medical records, obtaining and reviewing medical history, performing an appropriate physical exam, ordering
medications, tests and procedures. Time also includes documentation of this encounter, coordinating patient care and communicating with other healthcare professionals. Total time does not include separately billed tests or procedures performed on
this date of service.
Subjective Data
-
Date of Service:
Date of Service: October 22, 2025
Chief Complaint: Pulmonary Follow Up
Subjective:
Patient was seen and evaluated today at bedside. No significant events reported from overnight. Being prepared for discharge home today.
Patient was seen and evaluated on 10/22/2025
Review of Systems
General: Other (Negative unless mentioned above)
Objective Data
Data Reviewed
Vital Signs / I&O / Oxygen:
Vital Signs
Temp Pulse Resp BP Pulse Ox
98.2 F 85 25 124/79 94
10/22/25 08:00 10/22/25 06:00 10/22/25 06:00 10/21/25 23:37 10/22/25 06:00
Intake and Output
10/21/25 10/22/25 10/23/25
06:59 06:59 06:59
Intake Total 1764 / 1779 400 / 400
Output Total 2200 / 2200 2400 / 2400
Balance -436 / -421 -2000 / -1999
SaO2 94
Nasal Cannula flow liters per 2
minute
Physical Exam
General: Respiratory Distress (n) and Comfortable
HEENT: Normocephalic and Anicteric
Cardiovascular: S1-S2, Rub (n) and Peripheral Edema (n)
Respiratory: Clear, Accessory Resp Muscle Use (n) and Stridor (n)
GI: Soft and Non Distended
Neurology: Awake, Alert and Tremors (n)
Skin: Warm, Dry, Cyanosis (n) and Jaundice (n)
Labs/Micro/Reports
Lab Data
10/22/25 05:14
10/22/25 05:14
Laboratory Results
10/22/25
05:14
APTT 30.3
Microbiology
10/19/25 19:56 Nasal Swab Influenza Types A & B (DONYA) - Final
Negative for Influenza A & B, NAAT
Negative results must be combined with clinical observations
and patient history.
Nucleic Acid Amplification test (NAAT)performed on the
[employer] platform.
--- NOTE | 2025-10-22 10:59 | CM ---
Met with pt bedside in ICU. Reviewed Clint gaspar, pt is aware the $10 copay card needs activation before using but the 30 day free trial one does not. She uses [facility], will take cards with her when she picks up the prescription.
Family will transport her home.
--- NOTE | 2025-10-22 11:51 | W.PN.HOSP.TC ---
Addendum entered and electronically signed by Alberto Ricardo DO 10/22/25 14:57:
CDI:
-Acute DVT
-nonischemic myocardial injury
-without cor pulmonale
Original Note:
Today's Communication/Plan
-
Eliquis 10mg BID x7d then 5mig BID, course length to be determined outpatient by PCP/[facility] strip gauger, minimum 3 months
Stable for DC after echocardiogram presuming no significant abnormalities
Assessment / Plan
Assessment / Plan
Jose is a 35-year-old female with a past medical history of migraines, allergies, obesity who presented to the ER with complaints of dizziness and chest pressure that had persisted for 1 to 2 weeks with prior negative workup at outpatient urgent
care. She travels frequently for work, flies often. On arrival to the ED she was tachycardic, tachypneic, O2 saturations at 94% on room air and had an episode of hypotension. CT angiogram demonstrated extensive bilateral pulmonary embolism with
right heart strain. She underwent bilateral embolectomy with IR, was admitted to ICU, and started on heparin drip.
# Extensive bilateral pulmonary embolism, provoked
# Status post bilateral embolectomy
# Acute hypoxic respiratory insufficiency secondary to extensive bilateral PE
# Right lower extremity DVT
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 No family history or personal history of clotting disorders/PE
- Tolerated bilateral embolectomy well
- started on heparin ggt -- now stopped and transition to DOAC
- Bilateral lower extremity venous Doppler demonstrating nonocclusive thrombus in the right popliteal vein
- Wean O2 as tolerated to maintain oxygen saturation greater than 92%
- Case management to segal Eliquis
- treatment course TBD, most likely 3 to 6 months
- May benefit from outpatient Hematology workup
- continue Eliquis 10mg BID x7d then transition to 5mg BID for total length to be determined by PCP/Hematology (minimum 3 months)
# Nonischemic troponin elevation
Likely secondary to transient right heart strain due to extensive PE
- ECG showing no evidence of ischemia
- Troponin peak at 0.272
- Echo pending
# Transaminitis
Unclear significance, possibly related to transiently decreased CO as a consequence of extensive PE
- No other abdominal
- Trend CMP
# Migraine
- No acute symptoms at this time
- c/t monitor
#Elevated BMI
- advised weight loss, diet, exercise -- obesity as a pro estrogenic/inflammatory state can contribute to formation of DVTs
- follow up with PCP for further behavioral and lifestyle modifications
DVT prophylaxis: Heparin ggt
Status: Full code
Anticipated Discharge: Today
Subjective/Interval History
-
Date of Service: October 22, 2025
No acute events overnight. Chest pressure improving. Able to ambulate without significant shortness of breath, lightheadedness, dizziness. No desaturations overnight. Low extremity venous Doppler yesterday evening demonstrated nonocclusive
thrombus of the right popliteal vein.
Objective Data
-
Labs:
Laboratory Results
10/22/25
05:14
WBC 7.4
Hgb 10.8 L
Hct 32.2 L
Plt Count 193
APTT 30.3
Sodium 135
Potassium 4.1
Chloride 107
Carbon Dioxide 22
BUN 5 L
Creatinine 0.6
Glucose 83
Calcium 8.5
Total Bilirubin 0.4
AST 45 H
ALT 102 H
Alkaline Phosphatase 73
Vital Signs:
Vital Signs
Temp Pulse Resp BP Pulse Ox
98.2 F 94 16 137/89 96
10/22/25 08:00 10/22/25 10:00 10/22/25 10:00 10/22/25 08:47 10/22/25 10:00
I&O
10/21/25 10/22/2525
06:59 06:59 06:59
Intake Total 1764 / 1779 400 / 400 400 / 400
Output Total 2200 / 2200 2400 / 2400
Balance -436 / -421 -1999 / -1999 400 / 400
Review of Systems
-
History Source: Patient
All other systems: Reviewed and negative
Constitutional: Reports No Symptoms
EENT: Reports No Symptoms Reported
Respiratory: Reports No Symptoms
Cardiac: Reports No Symptoms
Abdomen/GI: Reports No Symptoms
Genitourinary: Reports No Symptoms
Musculoskeletal: Reports No Symptoms
Skin: Reports No Symptoms
Neuro: Reports No Symptoms
Hematologic / Lymphatic: Reports No Symptoms
Physical Exam
-
General: Well Developed, Well Nourished, No Apparent Distress and Comfortable
HEENT: Normocephalic, Atraumatic, Moist Mucous Membranes, [place] Conjunctivae, No Ptosis, PERRLA, Nose Appears Normal and Ears Appear Normal
Respiratory: Clear to Auscultation and Non Labored Respirations; Negative Wheezes, Rales or Rhonchi
Cardiac: Regular Rhythm and S1/S2; Negative Murmur or Rub
GI: Soft, Nontender, Nondistended and Normal Bowel Sounds
Rectal: Deferred by Provider
Genito-urinary: Deferred by me
Musculoskeletal: No Clubbing, No Cyanosis and No Edema
Skin: Warm, Dry and IV Access / Catheter Site
Neuro: AO x 3 and Nonfocal/Grossly Intact
Psych: Calm and Intact Judgement/Insight
--- NOTE | 2025-10-22 11:57 | W.DCSUMMARY ---
Documented by User: Aravind Saavedra MD, Resident 10/22/25 13:22
Discharge Summary
Discharge Data
Date of Admission: 10/19/25
Date of Discharge: 10/22/25
Total time spent discharging patient (in min): >30m
-
Pending Results: No
Hospital Course
Discharging Physician : Dr. Ricardo, Dr. Saavedra
Disposition : Home
Primary care physician : Extensive bilateral pulmonary embolism, right lower extremity DVT, bilateral embolectomy, acute hypoxic respiratory insufficiency secondary to extensive bilateral PE, nonischemic troponin elevation, transaminitis
Principal Discharge diagnosis : Migraine, elevated BMI
Chronic Discharge diagnosis :
Hospital Course :
Jose is a 35-year-old female with a past medical history of migraines, allergies, obesity who presented to the ER with complaints of dizziness and chest pressure that had persisted for 1 to 2 weeks with prior negative workup at outpatient urgent
care. She travels frequently for work, flies often. On arrival to the ED she was tachycardic, tachypneic, O2 saturations at 94% on room air and had an episode of hypotension. CT angiogram demonstrated extensive bilateral pulmonary embolism with
right heart strain. She underwent bilateral embolectomy with IR, was admitted to ICU, and started on heparin drip.
# Extensive bilateral pulmonary embolism, provoked
# Status post bilateral embolectomy
# Acute hypoxic respiratory insufficiency secondary to extensive bilateral PE
# Right lower extremity DVT
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 No family history or personal history of clotting disorders/PE
- Tolerated bilateral embolectomy well
- started on heparin ggt -- transitioned to DOAC Eliquis
- Bilateral lower extremity venous Doppler demonstrating nonocclusive thrombus in the right popliteal vein
- Initially required oxygen nasal cannula 2 L but was weaned off status post embolectomy, and has not required since
- Case management to segal Eliquis --10L a co-pay card given to patient
- May benefit from outpatient Hematology workup
- continue Eliquis 10mg BID x7d then transition to 5mg BID for total length to be determined by PCP/Hematology (minimum 3 months)
- Moving forward patient should wear compression socks during long flights/travel, be sure to move frequently (every 2 hours), avoid smoking, avoid estrogenic control, continue with weight loss efforts. She may also benefit from wearing
compression socks during long hours of sitting she works from home. Activity as tolerated over the next couple weeks; continuing chest discomfort is expected status post extensive embolectomy. She is aware that she should be on the look out for
for symptoms of worsening chest pain/pressure, lightheadedness, dizziness, sweating, presyncope/syncope, and should contact her PCP if these symptoms develop. Follow-up with PCP/hematology for further recommendations.
# Nonischemic troponin elevation
Likely secondary to transient right heart strain due to extensive PE. ECG done showing no evidence of ischemia. Troponins peaked at 0.272. Transthoracic echocardiogram ordered. LV function normal. Mild RV enlargement. Improved dynamics s/p
embolectomy. Full report below. May consider repeat in a few months per PCP discretion.
# Transaminitis
Unclear significance, possibly related to transiently decreased CO as a consequence of extensive PE. No abdominal symptoms during hospital stay. Tolerating regular diet. CMP downtrending. AST and ALT on 10/22/2025 were 45 and 102 respectively.
Can follow-up outpatient with LFTs within 1 week.
# Migraine
No acute symptoms during admission
#Elevated BMI
Advised weight loss, diet, exercise -- obesity as a pro estrogenic/inflammatory state can contribute to formation of DVTs. Follow up with PCP for further behavioral and lifestyle modifications
Important imaging findings :
CT Chest PE Study (10/19/2025):
1. Extensive bilateral pulmonary embolism involving the main pulmonary arteries.
2. CT findings highly suggestive of right heart strain.
3. Patchy consolidation within the posterior left upper lobe and subpleural left lower lobe may reflect pneumonia and/or pulmonary infarcts.
US Periph Venous LOWER Ext Pipe (10/21/2025):
1. Right lower extremity DVT with nonocclusive right popliteal vein thrombus.
2. No evidence of deep venous thrombosis in the left lower extremity as described above.
Transthoracic echocardiogram (10/22/2025):
SUMMARY
1. Normal LV size, thickness, and systolic function. No LV wall motion abnormalities.
2. RV measures normal in size but visually is close to the same size as the left ventricle suggesting mild right ventricular enlargement. Low normal right ventricular systolic function.
3. Estimated PASP 39 mmHg with an assumed right atrial pressure of 8 mmHg.
4. No prior echocardiogram available for comparison. When the patient presented with her pulmonary embolism on 10/19/[address] scan showed a RV to LV ratio of approximately 2:1. At embolectomy the initial PA pressure was 65/29 mmHg with a mean PA
pressure of 45 mmHg. After embolectomy the main pulmonary artery pressure fell to 47/21 mmHg, mean 33 mmHg. RA pressure was not measured.
Procedure findings :
XA Angiography Pulmonary Pipe; XA Intra Arter Pressure Mon; XA Mod Sedation Addl; XA Mod Sedation First; XA Perc. Translum. Throbectomy; XA Krista Cath Seg. Pa; XA U/s Guide Cvad; XA Venous Thrombectomy Sub (10/19/2025):
1. Large bilateral central pulmonary emboli, with significant improvement following suction embolectomy.
2. Pulmonary arterial pressures significantly improved following embolectomy. Patient's heart rate also improved, and went from the 130s to the 90s.
3. Therapeutic anticoagulation will resume approximately 2 hours following sheath removal.
Discharge Plan
-
Patient Disposition: Home (Routine Discharge)
Discharge Diagnosis/Procedures: Extensive Bilateral Pulmonary Embolism
Condition: Good
Diet: No restrictions
Activity: As tolerated
Driving Restrictions: Not until seen by your Dr
Blood Work: LFTs in 1 week
Referrals:
Nya White PA-C [Family Provider, [facility]] - in less than 1 week
Additional Discharge Medication Instructions: Take Eliquis 10mg BID until 10/28/25, then starting 10/29/25 take 5mg Eliquis BID for a total length of time to be determined by your PCP/Athlete Manager (at least 3 months)
You are OK to start compression socks, to be worn during work days or when traveling in long car rides or on airplanes.
Avoid Smoking and Estrogen-based contraception
Prescriptions:
New
Eliquis 5 mg Tablet
10 mg PO BID 6 Days Qty: 24 0RF
Eliquis 5 mg tablet
5 mg PO BID 30 Days Qty: 60 0RF
Continued
sumatriptan succinate [Imitrex] 25 mg Tablet
0 mg PO .COMPLEX
Rx Instructions:
take 1 tab at onset of headache; if no relief may repeat 1 tab after at least 2 hrs; max = 4 tabs/24 hr
alprazolam [Xanax] 0.5 mg Tablet
0.5 mg PO DAILYPRN PRN (Reason: anxiety)
Discharge Orders:
Discharge Patient (As Directed); Ordered 10/22/25
Ordered By: Aravind Saavedra
Discharge Date and Time
Discharge Date/Time: 10/22/25 14:20
Print Language: MALTESE

Documented by User: Alberto Ricardo DO 10/22/25 15:00
Discharge Summary
Discharge Data
Date of Admission: 10/19/25
Date of Discharge: 10/22/25
Total time spent discharging patient (in min): 33
Discharge Plan
-
Patient Disposition: Home (Routine Discharge)
Discharge Diagnosis/Procedures: Extensive Bilateral Pulmonary Embolism
Condition: Good
Diet: No restrictions
Activity: As tolerated
Driving Restrictions: Not until seen by your Dr
Blood Work: LFTs in 1 week
Referrals:
Nya White PA-C [Family Provider, [facility]] - in less than 1 week
Additional Discharge Medication Instructions: Take Eliquis 10mg BID until 10/28/25, then starting 10/29/25 take 5mg Eliquis BID for a total length of time to be determined by your PCP/Athlete Manager (at least 3 months)
You are OK to start compression socks, to be worn during work days or when traveling in long car rides or on airplanes.
Avoid Smoking and Estrogen-based contraception
Prescriptions:
New
Eliquis 5 mg Tablet
10 mg PO BID 6 Days Qty: 24 0RF
Eliquis 5 mg tablet
5 mg PO BID 30 Days Qty: 60 0RF
Continued
sumatriptan succinate [Imitrex] 25 mg Tablet
0 mg PO .COMPLEX
Rx Instructions:
take 1 tab at onset of headache; if no relief may repeat 1 tab after at least 2 hrs; max = 4 tabs/24 hr
alprazolam [Xanax] 0.5 mg Tablet
0.5 mg PO DAILYPRN PRN (Reason: anxiety)
Discharge Orders:
Discharge Patient (As Directed); Ordered 10/22/25
Ordered By: Aravind Saavedra
Discharge Date and Time
Discharge Date/Time: 10/22/25 14:20
Print Language: MALTESE
--- NOTE | 2025-10-22 12:51 | PTCARENOTE ---
Pt assessed.No change in assessment noted.Pt ambulated in [place] without sob.
[2025-10-22 13:59] VITALS: BP 149/95
--- NOTE | 2025-10-22 14:44 | PN.CDI ---
CDI
- -
CDI:
Physician Documentation Request
Admit Date: 10/19/25 23:02
Dear Doctor Quentin,
Patient admitted with bilateral pulmonary embolism. 10/19 CT chest impression states ' RV/LV ratio approximately 2:1.....CT findings highly suggestive of right heart strain.'
Echo 10/21 summary includes 'RV measures normal in size but visually is close to the same size as the left ventricle suggesting mild right ventricular enlargement. Low normal right ventricular systolic function......At embolectomy the initial PA
pressure was 65/29 mmHg with a mean PA pressure of 45 mmHg. After embolectomy the main pulmonary artery pressure fell to 47/21 mmHg, mean 33 mmHg'
Please clarify regarding the pulmonary embolism
with cor pulmonale
without cor pulmonale
Other
Use of terms such as suspected, likely, concern for, or probable (associated with a specific diagnosis that is being evaluated, monitored, or treated as if it exists) are acceptable and can be coded in the inpatient setting, when documented at the
time of discharge.
Thank you,
Alecia Black RN, BSN
CDI Specialist
tiger text
Please use your independent medical judgment in providing your response.
--- NOTE | 2025-10-22 14:49 | PN.CDI ---
CDI
- -
CDI:
Physician Documentation Request
Admit Date: 10/19/25 23:02
Dear Doctor Quentin,
Patient admitted with bilateral pulmonary embolism.
Progress notes states ' Nonischemic troponin elevation Likely secondary to transient right heart strain due to extensive PE'
Laboratory Tests
10/19/25 10/20/25 10/20/25
19:56 03:36 12:16
Troponin I 0.115 H* 0.272 H* D 0.102 H*
Please clarify the diagnosis associated with the elevated troponin:
Nonischemic myocardial injury
nonischemic troponin elevation
Other
Use of terms such as suspected, likely, concern for, or probable (associated with a specific diagnosis that is being evaluated, monitored, or treated as if it exists) are acceptable and can be coded in the inpatient setting, when documented at the
time of discharge.
Thank you,
Alecia Black RN, BSN
CDI Specialist
tiger text
Please use your independent medical judgment in providing your response.
--- NOTE | 2025-10-22 14:52 | PN.CDI ---
CDI
- -
CDI:
Physician Documentation Request
Admit Date: 10/19/25 23:02
Dear Doctor Quentin,
Patient found to have extensive bilateral pulmonary embolism and right lower extremity DVT. 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
Please clarify which of the following accurately represents the acuity of the right lower extremity DVT
____ Acute
Chronic
____ Other
Use of terms such as suspected, likely, concern for, or probable (associated with a specific diagnosis that is being evaluated, monitored, or treated as if it exists) are acceptable and can be coded in the inpatient setting, when documented at the
time of discharge.
Thank you,
Alecia Black RN, BSN
CDI Specialist
tiger text
Please use your independent medical judgment in providing your response.
== END 2025-10-22 14:20 | disposition home or self-care (01) | DRG 164 ==
LOC: ICU 23:02
PROVIDERS: Emergency Medicine; Internal Medicine; Radiology Vascular & Interventional Radiology; ADMITTING PHYSICIAN Internal Medicine; ATTENDING PHYSICIAN Internal Medicine; CONSULT PHYSICIAN Internal Medicine; EMERGENCY PHYSICIAN Student in an Organized Health Care Education/Training Program; FAMILY PHYSICIAN Physician Assistant
PROC: B31SZZZ Fluoroscopy of Right Pulmonary Artery (ICD-10-PCS; 2025-10-20)
PROC: B31TZZZ Fluoroscopy of Left Pulmonary Artery (ICD-10-PCS; 2025-10-20)
PROC: X2CY3T7 Extirpation of Matter from Great Vessel using Computer-aided Mechanical Aspiration, Percutaneous Approach, New Technology Group 7 (ICD-10-PCS; 2025-10-20)
DX: I26.99 Other pulmonary embolism without acute cor pulmonale (principal); E87.1 Hypo-osmolality and hyponatremia; I82.431 Acute embolism and thrombosis of right popliteal vein; I5A Non-ischemic myocardial injury (non-traumatic); R74.01 Elevation of levels of liver transaminase levels; E66.9 Obesity, unspecified; D72.829 Elevated white blood cell count, unspecified; I27.20 Pulmonary hypertension, unspecified; Z11.52 Encounter for screening for COVID-19; Z68.36 Body mass index [BMI] 36.0-36.9, adult; Z79.899 Other long term (current) drug therapy; Z79.01 Long term (current) use of anticoagulants
CPT/HCPCS: 36015; 36620; 37184; 37188; 71275; 75743; 76937; 80053; 82962; 83036; 84145; 84484; 84703; 85025; 85027; 85610; 85730; 86850; 86900; 86901; 87502; 87811; 93005; 93306; 93970; 96365; 99152; 99153; 99291; C1769; C1887; Q9967

== ENCOUNTER 2025-11-01 01:13 | Emergency (ER) | payer BC, SELFPAY ==
[2025-11-01 01:14] VITALS: BMI 35.7
[2025-11-01 01:19] VITALS: BP 162/98
[2025-11-01 01:55] LABS: Hematocrit 35.3 % (37.0-47.0); Hemoglobin 12.2 g/dL (12.0-16.0); Mean Corp Hgb Conc. 34.6 g/dL (33.0-37.0); Mean Corpuscular Volume 89.6 fL (81.0-99.0); Platelet Count 365 10^3/uL (130-400); Red Cell Dist. Width 12.1 % (11.5-14.5)
[2025-11-01 02:05] LABS: HCG, Serum Qualitative Screen Negative
[2025-11-01 02:31] LABS: ALT (SGPT) 43 U/L (0-35); AST (SGOT) 28 U/L (14-36); Albumin 4.6 g/dl (3.5-5.0); Alkaline Phosphatase 73 U/L (38-126); Blood Urea Nitrogen 9 mg/dl (7-17); Calcium 9.3 mg/dl (8.4-10.2); Carbon Dioxide 25 mmol/L (22-30); Chloride 101 mmol/L (98-107); Glucose 94 mg/dl (70-99); Potassium 3.5 mmol/L (3.5-5.1); Sodium 136 mmol/L (135-145); Total Protein 7.9 g/dl (6.3-8.2); eGFR > 60.00
[2025-11-01 03:50] VITALS: BP 133/111
[2025-11-01 04:00] VITALS: BP 122/93
--- NOTE | 2025-11-01 04:53 | ED.GENMED ---
History of Present Illness
<Jah Pearce DO - Last Filed: 11/01/25 05:33>
General
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
Source: patient, records, previous radiology exam and previous hospital records
Exam Limitations: none
Time Seen by Provider: 11/01/25 04:16
Nursing documentation reviewed up to this point in time: agreed with
History of Present Illness
History of Present Illness:
35-year-old female recently admitted with a large PE underwent thrombectomy stop her hormonal contraception, discharged Eliquis 10 twice daily now on 5 twice daily she has had heavy menstrual bleeding since early this month, more heavy the past few
days, passing clots no syncope no chest pain, no cramping, has some bruising in her right groin at the site of her angio, saw her PCP a blood work earlier this week, scheduled to see KEG INSPECTOR after the holiday at [place]
Past History
<Jah Pearce, - Last Filed: 11/01/25 05:33>
Past History
ED Past Medical History: Other (PE)
ED Past Surgical History: Cholecystectomy and Other (Thrombectomy)
Social History
Tobacco: Non-smoker
Alcohol: None
Drug: None
Personal:
Living: with family
Employment: Employed
Family History
Family History: Other (No history of PE)
Review of Systems
<Jah Pearce, - Last Filed: 11/01/25 05:33>
Review of Systems
All Other Systems: Not applicable
Constitutional: Denies fever or fatigue
EENT: Reports no symptoms
Respiratory: Reports no symptoms; Denies hemoptysis
Cardiac: Reports no symptoms; Denies chest pain, diaphoresis or palpitations
ABD/GI: Reports no symptoms
: Reports bleeding
Musculoskeletal: Reports no symptoms
Skin: Reports no symptoms
Neurological: Reports no symptoms; Denies dizzy or weakness
Phy Exam
<Jah Pearce, DO - Last Filed: 11/01/25 05:33>
Physical Exam
Physical Exam:
Physical Exam
General: no apparent distress, not acutely ill
Neck: No jaundice
Heart: s1/s2 regular rate and rhythm, no murmur. equal radial pulses.
Lungs: no acute respiratory distress. clear bilaterally
Abdomen: Soft nontender mild subacute appearing bruising in the right groin nontender
Neuro: alert and oriented. no focal neurological deficits
Skin: no rash
Psychiatric: well kept. interactive and cooperative
Extremities: no edema.
Course
<Jah Pearce, DO - Last Filed: 11/01/25 05:33>
Orders/Labs/Results
Orders:
Orders
11/01/25 01:26
Test Result ONCE
11/01/25 01:33
Complete Blood Count/With Diff Urgent
Comprehensive Metabolic Panel Urgent
HCG, Serum Qualitative Screen Urgent
Manual Differential Urgent
11/01/25 04:41
Pelvis (Non Obstetric) US [US Pelvis Only (non-obstetric)] Urgent
Comment:
Reason For Exam: heavy bleeding
Abnormal Lab Results
11/01/25
01:33
RBC 3.94 L 10^6/uL
(4.20-5.40)
Hct 35.3 L %
(37.0-47.0)
ALT 43 H U/L
(0-35)
11/01/25 01:33
11/01/25 01:33
Vital Signs
Initial and Last Documented VS:
Initial Vital Signs
Temp Pulse Resp BP Pulse Ox
98.5 F 94 18 162/98 98
11/01/25 01:19 11/01/25 01:19 11/01/25 01:19 11/01/25 01:19 11/01/25 01:19
Last Documented Vital Signs
Temp Pulse Resp BP Pulse Ox
97.7 F 82 16 137/76 98
11/01/25 02:00 11/01/25 07:19 11/01/25 07:19 11/01/25 07:19 11/01/25 07:19
<Carla Brasher, DO - Last Filed: 11/01/25 07:40>
Orders/Labs/Results
Orders:
Orders
11/01/25 01:26
Test Result ONCE
11/01/25 01:33
Complete Blood Count/With Diff Urgent
Comprehensive Metabolic Panel Urgent
HCG, Serum Qualitative Screen Urgent
Manual Differential Urgent
11/01/25 04:41
Pelvis (Non Obstetric) US [US Pelvis Only (non-obstetric)] Urgent
Comment:
Reason For Exam: heavy bleeding
Abnormal Lab Results
11/01/25
01:33
RBC 3.94 L 10^6/uL
(4.20-5.40)
Hct 35.3 L %
(37.0-47.0)
ALT 43 H U/L
(0-35)
11/01/25 01:33
11/01/25 01:33
Vital Signs
Initial and Last Documented VS:
Initial Vital Signs
Temp Pulse Resp BP Pulse Ox
98.5 F 94 18 162/98 98
11/01/25 01:19 11/01/25 01:19 11/01/25 01:19 11/01/25 01:19 11/01/25 01:19
Last Documented Vital Signs
Temp Pulse Resp BP Pulse Ox
97.7 F 82 16 137/76 98
11/01/25 02:00 11/01/25 07:19 11/01/25 07:19 11/01/25 07:19 11/01/25 07:19
<Jah Pearce DO - Last Filed: 11/01/25 05:33>
MDM/Problems Addressed
Differential Diagnosis Includes:
Menstrual bleeding, bleeding due to anticoagulation, bleeding due to withdrawal from hormones doubt
MDM/Problems Addressed:
Vaginal bleeding
Chronic conditions affecting care:
Anticoagulation PE
Acute Exacerbation and/or Progression of Chronic Illness:
Anticoagulation PE
<Jah Pearce, DO - Last Filed: 11/01/25 05:33>
*Radiology
Radiology exam reviewed: radiology read reviewed
*Pulse Oximetry
SaO2: 100
Oxygen Mode of Delivery: Room air
Patient hypoxic: no
*[facility] [employer] Interpretation
Rate: normal
Interpretation: normal
Heart Rate: 78
Rhythm: sinus
*Critical Care Note
Total Time (30-74mins, 75-104mins- exclusive of procedures): Not Applicable
<Jah Pearce DO - Last Filed: 11/01/25 05:33>
Update Note
Update Note:
5 AM, update vital signs stable hemoglobin noted improved from discharge, tough situation when heavy menstrual bleeding, anticoagulated in the setting of her recent large PE
Will check ultrasound to look for any structural abnormality, certainly would not give hormones, could consider TXA though not ideal as she has thrombosis recently, likewise NSAIDs not ideal
<Carla Brasher DO - Last Filed: 11/01/25 07:40>
Update Note
Update Note:
5 AM, update vital signs stable hemoglobin noted improved from discharge, tough situation when heavy menstrual bleeding, anticoagulated in the setting of her recent large PE
Will check ultrasound to look for any structural abnormality, certainly would not give hormones, could consider TXA though not ideal as she has thrombosis recently, likewise NSAIDs not ideal
Attending Sign out (Carla Brasher DO)
07:00 -assuming care of patient, 35-year-old female with recent history of extensive PE status post thrombectomy now on Eliquis presenting to the emergency department for heavy menstrual bleeding. Patient hemodynamically stable in the emergency
department. Labs are unremarkable with normal hemoglobin. Pending pelvic ultrasound.
07:40 - Pelvic ultrasound without acute abnormality. Patient's PE was suspected to be provoked by estrogen containing control. Patient also notes that she has not tolerated progesterone only controls in the past. At this holding any
control agents. Given hemodynamic stability, feel stable for discharge, however recommended close interval follow-up with her electrician assistant. Strict return precautions communicated to patient verbalized
ED Attending Note
<Jah Pearce, DO - Last Filed: 11/01/25 05:33>
-
Portions of this chart may have been created with voice recognition software.� Occasional wrong word or��sound alike� substitutions may have occurred due to the inherent limitations of voice recognition software.
Discharge Plan
Departure
Patient Disposition: Other
Date of Disposition: 11/01/25
Time of Disposition: 06:49
Patient with high blood pressure during this ER visit?: No
Condition: Good
Covid-19: Not Applicable
Discharge Problem:
Vaginal bleeding
Instructions: Heavy Periods (DC)
Prescriptions:
No Action
sumatriptan succinate [Imitrex] 25 mg Tablet
0 mg PO .COMPLEX
Rx Instructions:
take 1 tab at onset of headache; if no relief may repeat 1 tab after at least 2 hrs; max = 4 tabs/24 hr
alprazolam [Xanax] 0.5 mg Tablet
0.5 mg PO DAILYPRN PRN (Reason: anxiety)
Eliquis 5 mg Tablet
10 mg PO BID 6 Days Qty: 24 0RF
Eliquis 5 mg tablet
5 mg PO BID 30 Days Qty: 60 0RF
Referrals:
Nya White PA-C [Family Provider, Family Practice]
Activity Restrictions/Additional Instructions:
Follow-up with your KEG INSPECTOR and primary care provider
Interventions
Interventions:
*General Assessment Last Done: 11/01/25 02:00
*Neglect/Abuse Screening Last Done: 11/01/25 02:00
*ED COVID-19 Vaccine History Last Done: 11/01/25 02:00
*ED Influenza Vaccine History Last Done: 11/01/25 02:00
[facility] Fall Risk Assessment Tool Last Done: 11/01/25 01:14
*Risk Screen - Suicide (C-SSRS) Last Done: 11/01/25 01:19
ED-Female Genitourinary Assessment Last Done: 11/01/25 07:19
Discharge Date and Time
Print Language: NIGERIEN
[2025-11-01 04:57] LABS: Absolute Neutrophils -Man Diff 2.8 10^3/uL (1.4-6.5)
[2025-11-01 04:58] LABS: Normal RBC Morphology Yes; Platelets Checked Yes; Total Cells Counted 100
[2025-11-01 05:00] VITALS: BP 116/79
[2025-11-01 07:19] VITALS: BP 137/76
== END 2025-11-01 07:55 | disposition home or self-care (01) ==
LOC: EMR 01:13
PROVIDERS: Emergency Medicine; EMERGENCY PHYSICIAN Student in an Organized Health Care Education/Training Program; FAMILY PHYSICIAN Physician Assistant
DX: N93.9 Abnormal uterine and vaginal bleeding, unspecified (principal); Z79.01 Long term (current) use of anticoagulants; Z86.711 Personal history of pulmonary embolism
CPT/HCPCS: 99284; 76856; 80053; 84703; 85025